=== PATIENT | female | born 1960 | race Caucasian/White ===

== ENCOUNTER → 2017-07-29 | Day surgery (SDC) | payer MEDICARE, OTHER ==
[2017-07-25 11:39] LABS: BASOPHILS % 0.4 % (0.0-1.0); EOSINOPHILS # (AUTO) 0.1 (0.0-0.4); HEMATOCRIT 42.6 % (34.2-44.1); LYMPHOCYTES # (AUTO) 2.3 (1.0-3.2); LYMPHOCYTES % 41.6 % (18.0-39.1); MEAN CORPUSCULAR HEMOGLOBIN 31.4 pg (28-32); MEAN CORPUSCULAR HGB CONC 32.9 g/dL (31-35); MEAN CORPUSCULAR VOLUME 95.5 fL (81-99); MONOCYTES # (AUTO) 0.3 (0.2-0.8); MONOCYTES % 5.1 % (4.4-11.3); NEUTROPHILS # (AUTO) 2.8 (2.1-6.9); NEUTROPHILS % 50.7 % (38.7-80.0); PLATELET COUNT 172 x10e3/uL (140-360); RED BLOOD COUNT 4.46 x10e6/uL (3.6-5.1); RED CELL DISTRIBUTION WIDTH 12.6 % (11.7-14.4)
--- NOTE | 2017-07-25 12:06 | Diagnostic Imaging Report ---
PROCEDURE: Frontal and lateral views of the chest. COMPARISON: None. INDICATIONS: PRE OPERATIVE CHEST X-RAY FOR CYSTOSCOPY FINDINGS: Lines/tubes: None. Lungs: The lungs are well inflated and clear. There is no evidence of pneumonia or pulmonary edema. Pleura: There is no pleural effusion or pneumothorax. Heart and mediastinum: The heart and the mediastinum are normal. Bones: No acute bony abnormality. IMPRESSION: No acute cardiopulmonary disease. Dictated by: Eliseo Flower M.D. on 07/25/2017 at 12:15 Electronically approved by: Eliseo Flower M.D. on 07/25/2017 at 12:15
[~2017-07-29] MED LIST: ABILIFY2 MG PO; ASPIR 8181 MG PO; BUPROPION HCL150 MG PO; CEFTRIAXONE SOD 1 GM VIAL ONE; CLONAZEPAM0.5 MG PO; DEXAMETHASONE SOD PHOS INJ 4 MG/ML VIAL ONE; EPHEDRINE SULFATE INJ 50 MG/10 ML SYR ONE; FENOFIBRATE160 MG PO; FENTANYL CITRATE/PF 100MCG/2 ML INJ ONE; FUROSEMIDE40 MG PO; IOPAMIDOL 610MG/1ML 300 MG/ML VIAL IV ONE; LEVOTHYROXINE75 MCG PO; LIDOCAINE HCL 2% LOCAL INJ 5 ML SDV VIAL INJ ONE; LIOTHYRONINE SO5 MCG PO; METOPROLOL PO; MULTAQ 400MG T400 MG PO; NORCO 7.5-3251 EACH PO; ONDANSETRON HCL INJ 2 MG/ML VIAL ONE; OXYBUTYNIN CHLOR5 MG PO; PANTOPRAZOLE SO40 MG PO; PROPOFOL IV EMULSION 10 MG/ML 20 ML VIAL ONE; SERTRALINE HCL50 MG PO; SEVOFLURANE INHAL SOLN 250 ML PEN BTL ONE; SIMVASTATIN80 MG PO; TOPIRAMATE100 MG PO; TRAZODONE HCL100 MG PO
--- OUTSIDE RECORDS SUMMARY | 2017-07-29 06:00 | XMS REPORT ---
Author [facility] Address Unknown Phone Unavailable Care Team Providers Care Coffee Blender Name Role Phone ZOE WAKEFIELD Unavailable Unavailable Problems This patient has no known problems. Allergies, Adverse Reactions, Alerts This patient has no known allergies or adverse reactions. Medications This patient has no known medications. Results Test Description Test Time Test Comments Text Results Atomic Results Result Comments CHEST 2 VIEWS [place] [address] Patient Name: ANALY DORMAN IAN Murray MR #: [id number] : 1960 Age/Sex: 57/F Req # : [id number] [facility] Physician: Ordered by: ZOE WAKEFIELD MD Report #: [id number] Location: OR Room/Bed: Procedure: [id number] DX/CHEST 2 VIEWS Exam Date: 07/25/17 Exam Time: 1140 REPORT STATUS: Signed PROCEDURE: Frontal and lateral views of the chest. COMPARISON: None. INDICATIONS: PRE OPERATIVE CHEST X- RAY FOR CYSTOSCOPY FINDINGS: Lines/tubes: None. Lungs: The lungs are well inflated and clear. There is no evidence of pneumonia or pulmonary edema. Pleura: There is no pleural effusion or pneumothorax. Heart and mediastinum: The heart and the mediastinum are normal. Bones: No acute bony abnormality. IMPRESSION: No acute cardiopulmonary disease. Dictated by: Eliseo Lyn M.D. on 2017 at 12:15 Electronically approved by: Eliseo Lyn M.D. on 2017 at 12:15 Dictated By: ELISEO LYN MD 1215 Transcribed By: RAJIV on 07/25/17 1215 COPY TO: ZOE WAKEFIELD MD
--- NOTE | 2017-07-29 10:17 | Operative Report ---
DATE OF PROCEDURE: July 29, 2017 PREOPERATIVE DIAGNOSES 1. Multiple chronic urinary tract infections. 2. Clinical signs and symptoms of interstitial cystitis. POSTOPERATIVE DIAGNOSES 1. Multiple chronic urinary tract infections. 2. Clinical signs and symptoms of interstitial cystitis. 3. Grade 4 cystocele. 4. Grade 4 rectocele. 5. Grade 3-4 prolapse. 6. Vaginal atrophy. PROCEDURES 1. Cystourethroscopy with hydrodistention (entirely separate procedure for clinical signs and symptoms of interstitial cystitis without hematuria). 2. Cystourethroscopy with left ureteral catheterization and left retrograde pyelogram (separate procedure for multiple chronic urinary tract infections). 3. Cystourethroscopy with right ureteral catheterization and right retrograde pyelogram (separate procedure for multiple chronic urinary tract infections). 4. Supervision of fluoroscopy. 5. Interpretation of retrograde ureteropyelography. ANESTHESIA: General. ESTIMATED BLOOD LOSS: Minimal. COMPLICATIONS: None. INDICATIONS FOR PROCEDURE: Mrs. Macario is a very pleasant 57-year-old female with multiple chronic urinary tract infections. She and I had a long discussion about alternatives, risks and benefits including doing nothing, cystoscopy, IVP, retrograde pyelograms, renal ultrasound, hydrodistention. She voiced understanding of the options, alternatives, risks, and benefits and in order to avoid the nephrotoxic risk of dye, she elected to proceed with retrograde pyelograms. PROCEDURE IN DETAIL: After informed consent was obtained, the patient was preoperatively identified. She was on the operating room and placed in the dorsal lithotomy position. Sterilely prepped and draped in the standard fashion for cystoscopy. There was vaginal atrophy noted. There was a grade 3 cystocele noted and grade 3-4 rectocele noted, and grade 3-4 prolapse noted. A 22.5-[place]an cystoscope was inserted per urethra. It was noted to pass without any tumors. No stones. Both ureteral orifices were in normal anatomic location and position and seen to efflux clear urine. Hydrodistention was performed revealing a capacity of only 600 mL. No glomerulation. No Andrae's ulcers. Bilateral retrograde pyelograms were performed, which were normal. The bladder was drained. The patient was awakened from anesthesia and transported to the recovery room in excellent condition. SUPERVISION OF FLUOROSCOPY, INTERPRETATION OF RETROGRADE URETERAL PYELOGRAPHY: I was present throughout the entire procedure and I supervised the use of fluoroscopy. There was no radiologist present at any time during this procedure. Attention was turned toward the left and right ureteral orifices, catheterized with an 8-[place] cone-tipped catheter. In a retrograde fashion, contrast was injected. It revealed delicate ureters, delicate pelviceal systems. No evidence of filling defects. No evidence of hydronephrosis. IMPRESSION: Normal retrograde pyelograms. Job#: [id number]
== END | disposition home or self-care (01) ==
LOC: OR 05:58
PROVIDERS: ATTEND Urology
DX: N39.0 Urinary tract infection, site not specified (principal); N81.3 Complete uterovaginal prolapse; N39.46 Mixed incontinence; N95.2 Postmenopausal atrophic vaginitis; R35.1 Nocturia; R80.9 Proteinuria, unspecified; G47.33 Obstructive sleep apnea (adult) (pediatric); E03.9 Hypothyroidism, unspecified; K21.9 Gastro-esophageal reflux disease without esophagitis; B19.20 Unspecified viral hepatitis C without hepatic coma; J44.9 Chronic obstructive pulmonary disease, unspecified; I11.0 Hypertensive heart disease with heart failure; I50.9 Heart failure, unspecified; I48.91 Unspecified atrial fibrillation; F32.9 Major depressive disorder, single episode, unspecified; F41.9 Anxiety disorder, unspecified; Z01.810 Encounter for preprocedural cardiovascular examination; Z01.812 Encounter for preprocedural laboratory examination; Z01.818 Encounter for other preprocedural examination; Z79.82 Long term (current) use of aspirin; Z68.42 Body mass index [BMI] 45.0-49.9, adult
CPT/HCPCS: 36415; 52005; 71046; 74420; 85025; 93005; C1758; J0696; J1100; J2001; J2405; Q9967

== ENCOUNTER → 2017-08-07 | Outpatient (CLI) | payer OTHER ==
[~2017-08-07] MED LIST changes: -CEFTRIAXONE SOD 1 GM VIAL ONE; -DEXAMETHASONE SOD PHOS INJ 4 MG/ML VIAL ONE; -EPHEDRINE SULFATE INJ 50 MG/10 ML SYR ONE; -FENTANYL CITRATE/PF 100MCG/2 ML INJ ONE; -IOPAMIDOL 610MG/1ML 300 MG/ML VIAL IV ONE; -LIDOCAINE HCL 2% LOCAL INJ 5 ML SDV VIAL INJ ONE; -ONDANSETRON HCL INJ 2 MG/ML VIAL ONE; -PROPOFOL IV EMULSION 10 MG/ML 20 ML VIAL ONE; -SEVOFLURANE INHAL SOLN 250 ML PEN BTL ONE
--- NOTE | 2017-08-07 14:44 | Diagnostic Imaging Report ---
PROCEDURE:US RETROPERITONEAL ( KIDNEY ). COMPARISON:None. INDICATIONS:UTI TECHNIQUE: Sanchez-scale and color sonographic images of the bilateral kidneys and bladder where obtained in transverse and longitudinal planes. FINDINGS: RIGHT KIDNEY: 11.5 x 3.9 x 6.3 cm, cortex 1.1 cm Cysts: None Solid masses: None Stones: None Hydronephrosis: None Echogenicity: Normal LEFT KIDNEY: 13.5 x 5.7 x 4.9 cm, cortex 1.6 cm Cysts: Superior pole 1.8 x 1.4 x 1.6 cm anechoic simple cyst. Solid masses: None Stones: None Hydronephrosis: None Echogenicity: Normal Bladder: Normal. Both ureteral jets visualized. CONCLUSION: 1. Simple cyst in the left kidney. 2. Otherwise, unremarkable renal ultrasound exam. Dictated by: Eliseo Flower M.D. on 08/07/2017 at 14:44 Electronically approved by: Eliseo Flower M.D. on 08/07/2017 at 14:44
== END ==
LOC: US 12:53
PROVIDERS: ATTEND Urology
DX: N39.0 Urinary tract infection, site not specified (principal)
CPT/HCPCS: 76770

== ENCOUNTER → 2019-10-29 | Outpatient (CLI) | payer MEDICARE, OTHER ==
--- NOTE | 2019-10-29 14:26 | Diagnostic Imaging Report ---
EXAM: Renal Ultrasound INDICATION: ^CALCULUS OF KIDNEY/ASYMPTOMATIC MICRO HEMATURIA COMPARISON: None TECHNIQUE: Transverse and longitudinal images of the kidneys and bladder were obtained. FINDINGS: Right Kidney: Length: 11.8 cm Appearance: Normal echogenicity. Collecting system: No hydronephrosis Stones: None Cyst/Mass: None Left Kidney: Length: 11.4 cm Appearance: Normal echogenicity. Collecting system: No hydronephrosis Stones: None Cyst/Mass: 2.2 x 1.7 x 1.4 cm anechoic mid pole simple cyst. Bladder: No mass or calculi. Bilateral ureteral jets visualized. Prevoid volume estimate of 150 cc. IMPRESSION: No hydronephrosis or renal calculi. Left simple renal cyst. Signed by: Анна Lewis MD on 10/29/2019 2:23 PM
== END ==
LOC: US 13:16
PROVIDERS: ATTEND Urology
DX: R31.21 Asymptomatic microscopic hematuria (principal); N20.0 Calculus of kidney
CPT/HCPCS: 76770